=== PATIENT | female | born 1965 | race Native Hawaiian/Other Pacific Islander ===

== ENCOUNTER 2017-02-17 10:41 | Outpatient (CLI) | payer BC ==
[~2017-02-17 10:41] MED LIST: JANUMET1 TAB PO
== END 2017-02-17 19:10 | disposition home or self-care (01) ==
LOC: RAD 10:41
DX: M54.41 Lumbago with sciatica, right side (principal); M25.551 Pain in right hip

== ENCOUNTER 2018-01-29 14:27 | Observation (INO) | payer BC ==
[~2018-01-29] VITALS: Ht 162.6 cm; Wt 80.5 kg
[2018-01-29] VITALS (11 sets, daily range): BP systolic 126–186; BP diastolic 62–97; TEMP 97.8–98.8; Ht 162.6 cm; Wt 80.5 kg
[2018-01-29 14:56] LABS: PLATELET COUNT 312 K/uL (152-353)
[2018-01-29 14:59] LABS: POTASSIUM 4.1 mmol/L (3.6-5.2)
[2018-01-29] MEDS ORDERED: METFORMIN HYDR500 MG PO (21:01)
[2018-01-29] MEDS ORDERED: JANUMET XR1 TAB PO (21:02)
[2018-01-29] MEDS ORDERED: LEVO0.1224 PO (21:03)
[2018-01-30] VITALS: BP 159/76; TEMP 97.6
[2018-01-30 04:00] VITALS: BP 130/79; TEMP 97.7
[2018-01-30 08:00] VITALS: BP 137/71; TEMP 97.9
[2018-01-30 12:00] VITALS: BP 119/47; TEMP 97.8
== END 2018-01-30 14:23 | disposition home or self-care (01) ==
LOC: ED 14:27 → MED/SURG 17:15
DX: R07.89 Other chest pain (principal); E03.8 Other specified hypothyroidism; E11.9 Type 2 diabetes mellitus without complications; R06.02 Shortness of breath; R53.1 Weakness; R03.0 Elevated blood-pressure reading, without diagnosis of hypertension
CPT/HCPCS: 36415; 80053; 81000; 82550; 83735; 84100; 84443; 84484; 85027; 85379; 93005; 96372; 99220; 99284; G0378; J1650

== ENCOUNTER 2018-03-10 23:25 | Outpatient (CLI) | payer BC ==
[~2018-03-10 23:25] MED LIST changes: +JANUMET XR1 TAB PO; +LEVO0.1224 PO; +METFORMIN HYDR500 MG PO; +METO50TA27 PO; +NITR0.4S SL; +PANTOPRAZOLE 40MG TA PO; +PHENELX32 PO
== END 2018-03-10 23:30 | disposition short-term general hospital (02) ==
LOC: AMB 23:25
DX: R07.89 Other chest pain (principal); I10 Essential (primary) hypertension
CPT/HCPCS: A0425; A0427

== ENCOUNTER 2018-03-10 23:37 | Observation (INO) | payer BC ==
[~2018-03-10] VITALS: Ht 162.6 cm; Wt 80.8 kg
[2018-03-10 23:30] VITALS: BP 151/85
[2018-03-10 23:31] VITALS: BP 151/85; TEMP 98
[2018-03-11 00:26] LABS: PLATELET COUNT 243 K/uL (152-353)
[2018-03-11 00:30] VITALS: BP 152/72
[2018-03-11 00:31] LABS: POTASSIUM 3.9 mmol/L (3.6-5.2); SODIUM 136 mmol/L (136-145)
[2018-03-11 01:00] VITALS: BP 168/93
[2018-03-11 02:30] VITALS: BP 150/77
[2018-03-11 03:30] VITALS: BP 165/93; TEMP 98
[2018-03-11 04:18] VITALS: BP 142/73; TEMP 98.7; Ht 162.6 cm; Wt 80.8 kg
[2018-03-11 08:00] VITALS: BP 148/87; TEMP 98.1
[2018-03-11 08:56] LABS: PARTIAL THROMBOPLASTIN TIME 27.2 SECONDS (24.5-33.6)
== END 2018-03-11 11:25 | disposition short-term general hospital (02) ==
LOC: ED 23:37 → MED/SURG 03-11 02:53
DX: R07.89 Other chest pain (principal); R00.2 Palpitations; R12 Heartburn; E03.8 Other specified hypothyroidism
CPT/HCPCS: 80053; 80307; 81000; 82550; 82553; 84484; 85027; 85610; 85730; 93005; 96372; 99220; 99284; G0378; J1650; Q9963

== ENCOUNTER 2018-03-11 11:32 | Outpatient (CLI) | payer BC | END 2018-03-11 12:11 | disposition short-term general hospital (02) | LOC: AMB 11:32 | DX: R07.89 Other chest pain (principal); R00.2 Palpitations; R12 Heartburn; E03.8 Other specified hypothyroidism | CPT/HCPCS: A0425; A0427 ==

== ENCOUNTER 2020-01-17 15:51 | Emergency (ER) | payer BC ==
[~2020-01-17] VITALS: Ht 162.6 cm; Wt 80.7 kg
[2020-01-17 18:50] VITALS: BP 154/56; TEMP 98.9
== END 2020-01-17 18:51 | disposition home or self-care (01) ==
LOC: ED 15:51
DX: S39.012A Strain of muscle, fascia and tendon of lower back, initial encounter (principal); S80.01XA Contusion of right knee, initial encounter; S70.01XA Contusion of right hip, initial encounter; V03.00XA Pedestrian on foot injured in collision with car, pick-up truck or van in nontraffic accident, initial encounter; Y92.481 Parking lot as the place of occurrence of the external cause
CPT/HCPCS: 99283

== ENCOUNTER 2021-09-03 13:58 | Outpatient (CLI) | payer BC | END 2021-09-03 18:54 | disposition home or self-care (01) | LOC: MAMMO 13:58 | PROVIDERS: ATTEND Physician Assistant Medical | DX: Z78.0 Asymptomatic menopausal state (principal); Z12.31 Encounter for screening mammogram for malignant neoplasm of breast ==

== ENCOUNTER 2023-03-10 18:20 | Emergency (ER) | payer BC ==
[~2023-03-10] VITALS: Ht 162.6 cm; Wt 59.0 kg
[2023-03-10 18:31] VITALS: TEMP 101.2
[2023-03-10 20:20] VITALS: BP 151/69
== END 2023-03-10 20:20 | disposition home or self-care (01) ==
LOC: ED 18:20
PROC: 2W3CX1Z Immobilization of Right Lower Arm using Splint (ICD-10-PCS; principal; 2023-03-10)
DX: S62.101A Fracture of unspecified carpal bone, right wrist, initial encounter for closed fracture (principal); S20.219A Contusion of unspecified front wall of thorax, initial encounter; E11.8 Type 2 diabetes mellitus with unspecified complications; V89.2XXA Person injured in unspecified motor-vehicle accident, traffic, initial encounter
CPT/HCPCS: 99283